=== PATIENT | male | born 1990 | race Caucasian/White ===

== ENCOUNTER 2018-03-14 23:16 | Emergency (ER) | payer SELFPAY ==
[~2018-03-14 23:16] MED LIST: ZOLP-413 PO
[2018-03-14] MEDS ORDERED: ZIPRASIDONE 20 MG INJ IM ONE (23:43)
[2018-03-15 00:06] LABS: BASOPHILS # (AUTO) 0.03 x10^3/uL (0-0.1); BASOPHILS % (AUTO) 1 % (0-1); EOSINOPHILS # (AUTO) 0.01 x10^3/uL (0-0.4); EOSINOPHILS % (AUTO) 0 % (1-7); LYMPHOCYTES # (AUTO) 2.11 x10^3/uL (1-3.4); LYMPHOCYTES % (AUTO) 35 % (22-44); MD NO; MEAN CORPUSCULAR HEMOGLOBIN 29.9 pg (27.5-34.5); MEAN CORPUSCULAR HGB CONC 34.2 g/dL (33.2-36.2); MEAN CORPUSCULAR VOLUME 87.6 fL (81-97); MEAN PLATELET VOLUME 7.2 fL (7.4-10.4); MONOCYTES # (AUTO) 0.44 x10^3/uL (0.2-0.8); MONOCYTES % (AUTO) 7 % (2-9); NEUTROPHILS # (AUTO) 3.38 x10^3/uL (1.8-6.8); NEUTROPHILS % (AUTO) 57 % (42-75); PLATELET COUNT 269 x10^3/uL (130-400); RED BLOOD COUNT 5.48 x10^6/uL (4.38-5.82); RED CELL DISTRIBUTION WIDTH 14.6 % (9.4-14.8)
[2018-03-15 00:14] LABS: ALANINE AMINOTRANSFERASE 22 U/L (12-78); ALBUMIN 4.4 g/dL (3.4-5.0); ANION GAP 7 mmol/L (5-15); CALCIUM 8.6 mg/dL (8.5-10.1); CHLORIDE 107 mmol/L (98-107); CREATININE 0.79 mg/dL (0.7-1.3)
[2018-03-15 00:16] LABS: ACETAMINOPHEN < 2 mcg/mL (10-30); SALICYLATE LEVEL < 1.7 mg/dL (2.8-20.0)
[2018-03-15 00:17] LABS: ALKALINE PHOSPHATASE 96 U/L (45-117); BILIRUBIN,TOTAL 1.1 mg/dL (0.2-1.0); TOTAL PROTEIN 7.6 g/dL (6.4-8.2)
[2018-03-15] MEDS ORDERED: ZIPRASIDONE 20 MG INJ IM ONE ×2 (04:17)
[2018-03-15] MEDS ORDERED: LORazepam 1MG TABLET ONE (05:03)
[2018-03-15] MEDS ORDERED: LORazepam 1MG TABLET PO ONE (05:30)
[2018-03-15] MEDS ORDERED: DIAZEPAM 5 MG TABLET ONE (05:35)
[2018-03-15 06:00] LABS: AMPHETAMINE SCREEN, URINE Negative (Negative); BARBITURATE SCREEN, URINE Negative (Negative); BENZODIAZEPINE SCREEN, URINE Negative (Negative); CANNABINOID SCREEN, URINE Negative (Negative); COCAINE SCREEN, URINE Negative (Negative); METHADONE SCREEN, URINE Negative (Negative); OPIATE SCREEN, URINE Negative (Negative)
[2018-03-15] MEDS ORDERED: DIAZEPAM 5 MG TABLET PO ONE (06:00)
[2018-03-15 07:53] VITALS: BP 127/76
== END 2018-03-15 07:55 | disposition home or self-care (01) ==
LOC: ED 23:59
DX: F32.0 Major depressive disorder, single episode, mild (principal); R45.851 Suicidal ideations; F10.120 Alcohol abuse with intoxication, uncomplicated; F12.10 Cannabis abuse, uncomplicated; Z79.899 Other long term (current) drug therapy
CPT/HCPCS: 36415; 80053; 80307; 80329; 85025; 96372; 99284; J3486; G0480

== ENCOUNTER 2018-03-18 09:40 | Emergency (ER) | payer OTHER ==
[~2018-03-18] VITALS: Ht 182.9 cm; Wt 68.0 kg
[2018-03-18 10:40] LABS: BASOPHILS # (AUTO) 0.03 x10^3/uL (0-0.1); BASOPHILS % (AUTO) 0 % (0-1); EOSINOPHILS # (AUTO) 0.01 x10^3/uL (0-0.4); EOSINOPHILS % (AUTO) 0 % (1-7); LYMPHOCYTES # (AUTO) 1.38 x10^3/uL (1-3.4); LYMPHOCYTES % (AUTO) 21 % (22-44); MD NO; MEAN CORPUSCULAR HEMOGLOBIN 29.7 pg (27.5-34.5); MEAN CORPUSCULAR HGB CONC 33.8 g/dL (33.2-36.2); MEAN CORPUSCULAR VOLUME 87.8 fL (81-97); MEAN PLATELET VOLUME 7.4 fL (7.4-10.4); MONOCYTES # (AUTO) 0.42 x10^3/uL (0.2-0.8); MONOCYTES % (AUTO) 6 % (2-9); NEUTROPHILS % (AUTO) 73 % (42-75); PLATELET COUNT 169 x10^3/uL (130-400); RED BLOOD COUNT 4.85 x10^6/uL (4.38-5.82); RED CELL DISTRIBUTION WIDTH 14.6 % (9.4-14.8)
[2018-03-18 10:47] LABS: ALANINE AMINOTRANSFERASE 25 U/L (12-78); ALBUMIN 4.2 g/dL (3.4-5.0); ANION GAP 8 mmol/L (5-15); CHLORIDE 103 mmol/L (98-107); CREATININE 0.77 mg/dL (0.7-1.3)
[2018-03-18 10:50] LABS: ALKALINE PHOSPHATASE 107 U/L (45-117); BILIRUBIN,TOTAL 2.7 mg/dL (0.2-1.0); TOTAL PROTEIN 7.4 g/dL (6.4-8.2)
[2018-03-18 11:02] LABS: MICROSCOPIC INDICATED
[2018-03-18 11:03] LABS: CULTURE INDICATED? YES
[2018-03-18 13:46] VITALS: BP 140/88
== END 2018-03-18 14:05 | disposition home or self-care (01) ==
LOC: ED 11:44
DX: N30.01 Acute cystitis with hematuria (principal); L03.115 Cellulitis of right lower limb; F17.200 Nicotine dependence, unspecified, uncomplicated
CPT/HCPCS: 36415; 74021; 80053; 81001; 83690; 85025; 87086; 87491; 87591; 93005; 99285

== ENCOUNTER 2018-05-25 08:24 | Emergency (ER) | payer OTHER ==
[~2018-05-25] VITALS: Ht 182.9 cm; Wt 72.0 kg
[2018-05-25] MEDS ORDERED: FAMOTIDINE 20 MG/2 ML IVPush ONE (09:00)
[2018-05-25] MEDS ORDERED: ONDANSETRON ODT 4 MG PO ONE (09:00)
[2018-05-25] MEDS ORDERED: THIAMINE 100MG TABLET PO ONE (09:00)
[2018-05-25] MEDS ORDERED: MAALOX/HYOSCYAMINE/LIDOCAINE 45 ML BTL PO ONE (09:00)
[2018-05-25] MEDS ORDERED: SODIUM CHLORIDE 0.9% 1,000ML IVBOLUS ONE (09:00)
[2018-05-25] MEDS ORDERED: LORazepam 2 MG/ML, 1ML IVPush ONE (09:00)
[2018-05-25] MEDS ORDERED: THIAMINE 100MG TABLET ONE (09:19)
[2018-05-25] MEDS ORDERED: MAALOX/HYOSCYAMINE/LIDOCAINE 45 ML BTL ONE (09:19)
[2018-05-25] MEDS ORDERED: ONDANSETRON ODT 4 MG ONE (09:19)
[2018-05-25] MEDS ORDERED: LORazepam 2 MG/ML, 1ML ONE (09:20)
[2018-05-25] MEDS ORDERED: FAMOTIDINE 20 MG/2 ML ONE (09:20)
[2018-05-25 09:29] LABS: BASOPHILS # (AUTO) 0.01 x10^3/uL (0-0.1); BASOPHILS % (AUTO) 0 % (0-1); EOSINOPHILS % (AUTO) 0 % (1-7); LYMPHOCYTES # (AUTO) 1.46 x10^3/uL (1-3.4); LYMPHOCYTES % (AUTO) 19 % (22-44); MD NO; MEAN CORPUSCULAR HEMOGLOBIN 29.9 pg (27.5-34.5); MEAN CORPUSCULAR HGB CONC 33.8 g/dL (33.2-36.2); MEAN CORPUSCULAR VOLUME 88.4 fL (81-97); MEAN PLATELET VOLUME 7.4 fL (7.4-10.4); MONOCYTES % (AUTO) 5 % (2-9); NEUTROPHILS # (AUTO) 5.72 x10^3/uL (1.8-6.8); NEUTROPHILS % (AUTO) 75 % (42-75); PLATELET COUNT 185 x10^3/uL (130-400); RED BLOOD COUNT 4.41 x10^6/uL (4.38-5.82); RED CELL DISTRIBUTION WIDTH 13.8 % (9.4-14.8)
[2018-05-25 09:42] LABS: ALBUMIN 4.1 g/dL (3.4-5.0); ANION GAP 8 mmol/L (5-15); CALCIUM 9.1 mg/dL (8.5-10.1); CHLORIDE 109 mmol/L (98-107)
[2018-05-25 09:47] LABS: ALANINE AMINOTRANSFERASE 25 U/L (12-78); ALKALINE PHOSPHATASE 69 U/L (45-117); BILIRUBIN,TOTAL 1.4 mg/dL (0.2-1.0); CREATININE 0.79 mg/dL (0.7-1.3)
[2018-05-25] MEDS ORDERED: MIRT30TA6 PO (10:03)
[2018-05-25] MEDS ORDERED: SUBUTEX (10:04)
[2018-05-25] MEDS ORDERED: DIPH12.532 PO (10:05)
[2018-05-25 10:59] VITALS: BP 116/69
== END 2018-05-25 11:03 | disposition home or self-care (01) ==
LOC: ED 10:17
DX: K29.20 Alcoholic gastritis without bleeding (principal); F10.280 Alcohol dependence with alcohol-induced anxiety disorder; Y90.9 Presence of alcohol in blood, level not specified
CPT/HCPCS: 36415; 71045; 80053; 83690; 85025; 93005; 96361; 96374; 96375; 99285; J2060; J7030; Q0162; S0028

== ENCOUNTER 2018-05-28 01:42 | Emergency (ER) | payer OTHER ==
[~2018-05-28] VITALS: Ht 182.9 cm; Wt 71.8 kg
[~2018-05-28 01:42] MED LIST changes: +DIPH12.532 PO; +MIRT30TA6 PO; +SUBUTEX
[2018-05-28] MEDS ORDERED: SODIUM CHLORIDE FLUSH 10ML SYR IVF ONE (02:00)
[2018-05-28] MEDS ORDERED: ONDANSETRON 2MG/ML, 2ML IVPush ONE (02:00)
[2018-05-28] MEDS ORDERED: MORPHINE SULFATE 4 MG/ML, 1ML IVPush PRN (02:00)
[2018-05-28] MEDS ORDERED: PROMETHAZINE 25 MG/ML, 1ML IM ONE (02:00)
[2018-05-28] MEDS ORDERED: SODIUM CHLORIDE 0.9% 1,000ML IVBOLUS ONE (02:00)
[2018-05-28 02:26] LABS: BASOPHILS # (AUTO) 0.02 x10^3/uL (0-0.1); BASOPHILS % (AUTO) 0 % (0-1); EOSINOPHILS # (AUTO) 0.01 x10^3/uL (0-0.4); EOSINOPHILS % (AUTO) 0 % (1-7); LYMPHOCYTES # (AUTO) 1.62 x10^3/uL (1-3.4); LYMPHOCYTES % (AUTO) 24 % (22-44); MD NO; MEAN CORPUSCULAR HEMOGLOBIN 30.4 pg (27.5-34.5); MEAN CORPUSCULAR VOLUME 89.6 fL (81-97); MEAN PLATELET VOLUME 7.4 fL (7.4-10.4); MONOCYTES # (AUTO) 0.23 x10^3/uL (0.2-0.8); MONOCYTES % (AUTO) 4 % (2-9); NEUTROPHILS # (AUTO) 4.83 x10^3/uL (1.8-6.8); NEUTROPHILS % (AUTO) 72 % (42-75); PLATELET COUNT 189 x10^3/uL (130-400); RED BLOOD COUNT 4.95 x10^6/uL (4.38-5.82); RED CELL DISTRIBUTION WIDTH 13.8 % (9.4-14.8)
[2018-05-28 02:38] LABS: ALANINE AMINOTRANSFERASE 23 U/L (12-78); ALBUMIN 4.5 g/dL (3.4-5.0); ANION GAP 12 mmol/L (5-15); CALCIUM 8.8 mg/dL (8.5-10.1); CHLORIDE 109 mmol/L (98-107); CREATININE 0.65 mg/dL (0.7-1.3)
[2018-05-28 02:41] LABS: ALKALINE PHOSPHATASE 83 U/L (45-117); BILIRUBIN,TOTAL 1.1 mg/dL (0.2-1.0); TOTAL PROTEIN 7.5 g/dL (6.4-8.2)
[2018-05-28] MEDS ORDERED: PROMETHAZINE 25 MG/ML, 1ML ONE (03:07)
[2018-05-28] MEDS ORDERED: MORPHINE SULFATE 4 MG/ML, 1ML ONE (03:07)
[2018-05-28] MEDS ORDERED: ONDANSETRON 2MG/ML, 2ML ONE (03:07)
[2018-05-28 03:48] VITALS: BP 129/83
== END 2018-05-28 03:50 | disposition home or self-care (01) ==
LOC: ED 03:19
DX: K29.20 Alcoholic gastritis without bleeding (principal); F10.10 Alcohol abuse, uncomplicated; F41.1 Generalized anxiety disorder; F32.9 Major depressive disorder, single episode, unspecified
CPT/HCPCS: 36415; 80053; 80307; 83690; 85025; 96361; 96372; 96374; 96375; 99285; J2405; J2550; J7030

== ENCOUNTER 2020-11-24 08:30 | Emergency (ER) | payer SELFPAY ==
[~2020-11-24] VITALS: Ht 182.9 cm; Wt 75.7 kg
[~2020-11-24 08:30] MED LIST changes: -MIRT30TA6 PO; +MIRT30TA97 PO
--- NOTE | 2020-11-24 08:52 | NUR ---
FIRST ENCOUNTER WITH PT: PT PRESENTED TO ED D/T LLQ W/N/V X2 WEEKS. PT ALSO STATES WAS EXPOSED TO COVID 2 WEEKS AGO. +COUGH. +SOB.
[2020-11-24] MEDS ORDERED: ESCI20TA10 PO (08:53)
--- NOTE | 2020-11-24 09:17 | NUR ---
LAB AT BEDSIDE. RN TO ASK SOMEONE TO OBTAIN ULTRASOUND GUIDED IV FOR PIV ACCESS.
[2020-11-24] MEDS ORDERED: ONDANSETRON 2MG/ML, 2ML ONE (09:19)
[2020-11-24] MEDS ORDERED: MORPHINE SULFATE 4 MG/ML, 1ML ONE ×2 (09:20→10:45)
[2020-11-24] MEDS: MORPHINE SULFATE 4 MG/ML, 1ML IVPush PRN ×2 (09:27→10:47)
--- NOTE | 2020-11-24 09:28 | NUR ---
PIV ACCESS OBTAINED BY US GUIDED IV. LABS DRAWN. PT MEDICATED FOR 06/20 LLQ ABD PAIN.
[2020-11-24] MEDS ORDERED: SODIUM CHLORIDE 0.9% 1,000ML IVBOLUS ONE (09:30)
[2020-11-24] MEDS ORDERED: SODIUM CHLORIDE FLUSH 10ML SYR IVF ONE (09:30)
[2020-11-24] MEDS ORDERED: ONDANSETRON 2MG/ML, 2ML IVPush ONE (09:30)
[2020-11-24 09:36] LABS: BASOPHILS % (AUTO) 0 % (0-1); EOSINOPHILS % (AUTO) 0 % (1-7); LYMPHOCYTES % (AUTO) 13 % (22-44); MEAN CORPUSCULAR HEMOGLOBIN 29.6 pg (27.5-34.5); MEAN CORPUSCULAR HGB CONC 34.3 g/dL (33.2-36.2); MEAN PLATELET VOLUME 7.8 fL (7.4-10.4); MONOCYTES % (AUTO) 5 % (2-9); NEUTROPHILS % (AUTO) 81 % (42-75); PLATELET COUNT 256 x10^3/uL (130-400); RED BLOOD COUNT 4.88 x10^6/uL (4.38-5.82); RED CELL DISTRIBUTION WIDTH 14.8 % (9.4-14.8)
[2020-11-24 09:37] LABS: MD NO
[2020-11-24] MEDS ORDERED: PROMETHAZINE 25 MG/ML, 1ML ONE (09:44)
--- NOTE | 2020-11-24 09:47 | NUR ---
RN INFORMED MD THAT PT IS STILL VOMITTING WITH IV ZOFRAN. OKAY BY TO ADMINISTER 25MG IM PHENERGAN ONE TIME NOW.
[2020-11-24 09:50] LABS: ALANINE AMINOTRANSFERASE 21 U/L (12-78); ALBUMIN 3.6 g/dL (3.4-5.0); ANION GAP 6 mmol/L (5-15); CALCIUM 8.8 mg/dL (8.5-10.1); CHLORIDE 109 mmol/L (98-107); CREATININE 0.81 mg/dL (0.7-1.3)
[2020-11-24 09:53] LABS: ALKALINE PHOSPHATASE 62 U/L (45-117); BILIRUBIN,TOTAL 0.6 mg/dL (0.2-1.0)
[2020-11-24] MEDS ORDERED: MAALOX/HYOSCYAMINE/LIDOCAINE 45 ML BTL ONE (09:59)
[2020-11-24] MEDS ORDERED: PROMETHAZINE 25 MG/ML, 1ML IM ONE (10:00)
[2020-11-24] MEDS ORDERED: MAALOX/HYOSCYAMINE/LIDOCAINE 45 ML BTL PO ONE (10:00)
[2020-11-24] MEDS ORDERED: SODIUM CHLORIDE 0.9%, 500ML IVBOLUS ONE (10:30)
[2020-11-24] MEDS ORDERED: FAMOTIDINE 20 MG/2 ML ONE (10:30)
[2020-11-24] MEDS ORDERED: FAMOTIDINE 20 MG/2 ML IVPush ONE (10:30)
--- NOTE | 2020-11-24 10:31 | NUR ---
ADDITIONAL MEDICATIONS ADMINISTERED PER EMAR.
--- NOTE | 2020-11-24 10:47 | NUR ---
2/2 DOSES OF MORPHINE ADMINSITERED FOR 9/10 ABD PAIN. RN TO SWAB PT FOR COVID.
--- NOTE | 2020-11-24 11:20 | NUR ---
2ND LITER INFUSED. PT STATES BETTER AND READY TO GO. RN WENT OVER DC INSTRUCTIONS. PT VERBALIZED UNDERSTANDING. PIV WAS REMOVED WITH TIP INTACT. NO FURTHER QUESTIONS OR CONCERNS EXPRESSED AT THAT TIME. PT GETTING SELF DRESSED.
[2020-11-24 11:21] VITALS: BP 132/87
== END 2020-11-24 11:22 | disposition home or self-care (01) ==
LOC: ED 09:56
DX: R10.11 Right upper quadrant pain (principal); Z20.822 Contact with and (suspected) exposure to COVID-19; R50.9 Fever, unspecified; R11.2 Nausea with vomiting, unspecified; R19.7 Diarrhea, unspecified
CPT/HCPCS: 36415; 80053; 83690; 85025; 87635; 96361; 96372; 96374; 96375; 96376; 99284; J2270; J2405; J2550; J7030; J7040

== ENCOUNTER 2021-02-11 22:09 | Emergency (ER) | payer SELFPAY ==
[~2021-02-11] VITALS: Ht 182.9 cm; Wt 80.0 kg
[~2021-02-11 22:09] MED LIST changes: +ESCI20TA10 PO
[2021-02-11] MEDS ORDERED: MAALOX/HYOSCYAMINE/LIDOCAINE 45 ML BTL PO ONE (22:30)
[2021-02-11 22:43] LABS: ALANINE AMINOTRANSFERASE 21 U/L (12-78); ALBUMIN 4.2 g/dL (3.4-5.0); ANION GAP 8 mmol/L (5-15); CALCIUM 9.2 mg/dL (8.5-10.1); CHLORIDE 105 mmol/L (98-107); CREATININE 0.82 mg/dL (0.7-1.3)
[2021-02-11 22:45] LABS: BASOPHILS % (AUTO) 0 % (0-1); EOSINOPHILS % (AUTO) 0 % (1-7); LYMPHOCYTES % (AUTO) 11 % (22-44); MEAN CORPUSCULAR HEMOGLOBIN 29.8 pg (27.5-34.5); MEAN PLATELET VOLUME 7.5 fL (7.4-10.4); MONOCYTES % (AUTO) 3 % (2-9); NEUTROPHILS % (AUTO) 86 % (42-75); PLATELET COUNT 253 x10^3/uL (130-400); RED BLOOD COUNT 5.05 x10^6/uL (4.38-5.82); RED CELL DISTRIBUTION WIDTH 14.5 % (9.4-14.8)
[2021-02-11 22:47] LABS: ALKALINE PHOSPHATASE 83 U/L (45-117); BILIRUBIN,TOTAL 1.7 mg/dL (0.2-1.0); TOTAL PROTEIN 7.6 g/dL (6.4-8.2); TROPONIN I < 0.015 ng/mL (0.000-0.045)
[2021-02-11 22:53] LABS: MD NO
[2021-02-11] MEDS ORDERED: MAALOX/HYOSCYAMINE/LIDOCAINE 45 ML BTL ONE (23:00)
--- NOTE | 2021-02-11 23:04 | NUR ---
PT STATES HE BELIEVED HE WAS GOING TO HAVE A HEART ATTACK. REPORTS SYMPTOMS BEGAN AROUND 1 AND HAS BEEN GETTING WORSE SENSE. STATES CHEST PAIN FEELS LIKE BURNING AND LIKE SOMEONE IS SITTING ON HIM. STATES HE FEELS IT IN HIS EPIGASTRIC AREA AND FEELS HIS HEART BEATING OUT OF YOUR CHEST. STATES NO N/V OR EATING ANYTHING RECENTLY. PAIN DOES NOT RADIATE ANYWHERE. DENIES HEADACHE. REPORTS TINGLING IN FINGERS. STATES HE HAS A HISTORY OF ANXIETY. FEELS STRESSED OUT LATELY.
--- NOTE | 2021-02-11 23:04 | NUR ---
PT OFF UNIT IN IMAGING
--- NOTE | 2021-02-11 23:14 | NUR ---
GAVE REPORT TO LORA PERALTA
--- NOTE | 2021-02-11 23:32 | NUR ---
PT BACK FROM IMAGING, STATES US WAS PAINFUL, CURRENTLY COMPLAINING OF EPIGASTRIC PAIN RATED 8/10. PT ON CANDY PULLER WITH BED RAILS UP BILATERALLY AND CALL LIGHT IN HAND. PT IN SEMI FOWLERS POSITION. PT MEDICATED ORDERED WITH GI COCKTAIL, PT ABLE TO TAKE MEDICATION WITHOUT COMPLICATIONS. NO SIGNS OR SYMPTOMS OF ACUTE DSITRESS NOTED RESPRIATIONS EVEN AND UNLABORED. PT AWARE AND AGREEABLE WITH PLAN OF CARE.
[2021-02-12 00:17] VITALS: BP 129/81
== END 2021-02-12 00:20 | disposition home or self-care (01) ==
LOC: ED 02-12
DX: K29.00 Acute gastritis without bleeding (principal); R10.13 Epigastric pain; R94.31 Abnormal electrocardiogram [ECG] [EKG]
CPT/HCPCS: 36415; 71045; 76700; 80053; 83690; 84484; 85025; 93005; 99285